=== PATIENT | male | born 1990 | race Two or more races ===

== ENCOUNTER 2019-03-04 08:36 | Emergency (ER) | payer OTHER ==
[~2019-03-04] VITALS: Ht 177.8 cm; Wt 70.3 kg
[2019-03-04] MEDS ORDERED: OSEL75CA PO (10:23)
[2019-03-04] MEDS ORDERED: TUSSI PRES-B L480 ML PO (10:23)
[2019-03-04] MEDS ORDERED: ZITHROMAX500 MG PO (10:25)
== END 2019-03-04 10:36 | disposition home or self-care (01) ==
LOC: ER 08:36
DX: B34.9 Viral infection, unspecified (principal)